=== PATIENT | female | born 1940 | race Caucasian/White ===

== ENCOUNTER 2019-12-16 07:02 | Outpatient (REF) | payer MEDICARE, MEDICAID, SELFPAY ==
[2019-12-16 08:57] LABS: Hemoglobin 14.1 g/dl (12.0-16.0); Mean Corpuscular HGB Conc 32.8 g/dl (31.0-35.0); Mean Corpuscular Hemoglobin 31.3 pg (27.0-33.0); Mean Corpuscular Volume 95.6 fL (80-98); Mean Platelet Volume 11.1 fL (9.4-12.3); Platelet Count 204 X10*3/uL (160-400); Red Cell Distribution Width 12.8 % (11.0-16.0); White Blood Count 5.8 X10*3/uL (4.8-10.8)
[2019-12-16 09:38] LABS: Alanine Aminotransferase 19 U/L (0-31); Albumin Level 4.1 g/dL (3.5-5.0); Alkaline Phosphatase 54 U/L (39-117); Anion Gap 15 (12-20); Aspartate Amino Transferase 26 U/L (5-31); Bilirubin Total 1.1 mg/dL (0.0-1.0); Blood Urea Nitrogen 27 mg/dL (9-16); Calcium 8.8 mg/dL (8.4-10.2); Carbon Dioxide 27 mmol/L (22-29); Chloride 103 mmol/L (96-108); Estimated Glomerular Filt Rate 49; Glucose Fasting 135 mg/dL (60-99); Potassium 4.3 mmol/l (3.3-5.1); Sodium 141 mmol/L (135-145); Total Protein 6.5 g/dL (6.5-8.0)
[2019-12-16 09:48] LABS: Free T4 (Free Thyroxine) 1.53 ng/dL (0.71-1.85); Thyroid Stimulating Hormone 0.84 uIU/mL (0.32-4.0)
== END 2019-12-16 07:03 | disposition home or self-care (01) ==
LOC: HO.LAB 07:02
PROVIDERS: Visit Provider Internal Medicine
DX: E03.9 Hypothyroidism, unspecified (principal); E78.2 Mixed hyperlipidemia; E11.9 Type 2 diabetes mellitus without complications; R60.9 Edema, unspecified
CPT/HCPCS: 36415; 80053; 84439; 84443; 85027

== ENCOUNTER 2020-01-13 11:31 | Outpatient (REF) | payer MEDICARE, MEDICAID, SELFPAY ==
--- NOTE | 2020-01-13 11:37 | XR_ITS ---
EXAMINATION: XR HAND, LEFT CLINICAL INFORMATION: Finger pain COMPARISON: None TECHNIQUE: PA, lateral, and oblique views of the left hand. FINDINGS: There is no evidence of acute fracture or dislocation of the left hand. No significant joint space narrowing is identified. No erosive changes are seen. Vascular calcifications present. There is some mild soft tissue swelling seen about the second and third metacarpophalangeal joints. XR/XR hand LT min 3V IMPRESSION: No significant bony abnormality of the left hand identified.
== END 2020-01-13 11:32 | disposition home or self-care (01) ==
LOC: HO.HMGCX 11:31
PROVIDERS: PCP Internal Medicine; Visit Provider Hospitalist
DX: M79.645 Pain in left finger(s) (principal)
CPT/HCPCS: 73130

== ENCOUNTER 2020-02-11 10:16 | Outpatient (REF) | payer MEDICARE, MEDICAID, SELFPAY | END 2020-02-11 10:17 | disposition home or self-care (01) | LOC: HO.LAB 10:16 | PROVIDERS: PCP Internal Medicine; Visit Provider Internal Medicine | DX: Z20.822 Contact with and (suspected) exposure to COVID-19 (principal) | CPT/HCPCS: 36415; C9803; U0003 ==

== ENCOUNTER 2020-05-13 07:51 | Outpatient (REF) | payer MEDICARE, MEDICAID, SELFPAY ==
[2020-05-13 10:02] LABS: Alanine Aminotransferase 12 U/L (0-31); Albumin Level 4.3 g/dL (3.5-5.0); Alkaline Phosphatase 62 U/L (39-117); Anion Gap 17 (12-20); Aspartate Amino Transferase 18 U/L (5-31); Bilirubin Total 1.6 mg/dL (0.0-1.0); Carbon Dioxide 28 mmol/L (22-29); Chloride 102 mmol/L (96-108); Cholesterol 166 mg/dL; Estimated Glomerular Filt Rate 48; Glucose Fasting 177 mg/dL (60-99); HDL Cholesterol 67 mg/dL; LDL Cholesterol Calculated 77 mg/dl; Potassium 4.6 mmol/L (3.3-5.1); Sodium 142 mmol/L (135-145); Total Protein 6.9 g/dL (6.5-8.0); Triglycerides 112 mg/dL
[2020-05-13 10:03] LABS: Estimated Average Glucose 171 mg/dL; Hemoglobin A1c % 7.6 %
[2020-05-13 10:07] LABS: TSH reflex Free T4 1.41 uIU/mL (0.32-4.0)
[2020-05-13 10:13] LABS: Blood Urea Nitrogen 26 mg/dL (9-16); Calcium 9.5 mg/dL (8.4-10.2)
[2020-05-13 10:36] LABS: Creatinine Urine 74.18 mg/dL
== END 2020-05-13 07:52 | disposition home or self-care (01) ==
LOC: HO.LAB 07:51
PROVIDERS: PCP Internal Medicine; Visit Provider Internal Medicine
DX: E03.9 Hypothyroidism, unspecified (principal); E11.9 Type 2 diabetes mellitus without complications; E78.5 Hyperlipidemia, unspecified; I48.91 Unspecified atrial fibrillation
CPT/HCPCS: 36415; 80053; 80061; 82043; 83036; 84443

== ENCOUNTER 2020-10-26 | Outpatient (REF) | payer MEDICARE, MEDICAID, SELFPAY ==
[2020-10-26 09:55] VITALS: BP 192/81; PULSE 71; RESP 16; TEMP 36.4; O2SAT 98
[2020-10-26 11:11] VITALS: BMI 31.3
== END 2020-10-26 00:01 | disposition home or self-care (01) ==
LOC: HO.MS
PROVIDERS: PCP Internal Medicine; Visit Provider Ophthalmology
PROC: (CPT 66821; principal; 2020-10-26 12:40)
DX: H26.491 Other secondary cataract, right eye (principal); Z96.1 Presence of intraocular lens; E11.9 Type 2 diabetes mellitus without complications; Z79.84 Long term (current) use of oral hypoglycemic drugs; Z79.899 Other long term (current) drug therapy
CPT/HCPCS: 66821

== ENCOUNTER 2020-11-25 07:20 | Outpatient (REF) | payer MEDICARE, MEDICAID, SELFPAY ==
[2020-11-25 07:56] LABS: Basophils Percent Auto 0.5 % (0-2); Eosinophils Absolute Auto 0.2 X10*3/uL (0.0-0.4); Eosinophils Percent Auto 2.9 % (0-4); Hematocrit 40.3 % (37-47); Hemoglobin 13.2 g/dl (12.0-16.0); Imm Gran Abs Auto 0.02 X10*3/uL (0.00-0.03); Imm Gran Pct Auto 0.4 % (0.0-0.4); Lymphocytes Absolute Auto 2.2 X10*3/uL (1.2-4.9); Lymphocytes Percent Auto 39.7 % (20-40); MANUAL DIFF FLAG NO; Mean Corpuscular HGB Conc 32.8 g/dl (31.0-35.0); Mean Corpuscular Hemoglobin 31.2 pg (27.0-33.0); Mean Corpuscular Volume 95.3 fL (80-98); Mean Platelet Volume 10.7 fL (9.4-12.3); Monocytes Absolute Auto 0.5 X10*3/uL (0.1-1.2); Monocytes Percent Auto 8.9 % (2-11); Neutrophils Absolute Auto 2.6 X10*3/uL (2.0-8.3); Neutrophils Percent Auto 47.6 % (45-73); Platelet Count 244 X10*3/uL (160-400); Red Blood Count 4.23 X10*6/uL (4.20-5.50); Red Cell Distribution Width 13.8 % (11.0-16.0); White Blood Count 5.5 X10*3/uL (4.8-10.8)
[2020-11-25 08:34] LABS: Alanine Aminotransferase 10 U/L (0-31); Albumin Level 4.2 g/dL (3.5-5.0); Alkaline Phosphatase 52 U/L (39-117); Anion Gap 17 (12-20); Aspartate Amino Transferase 18 U/L (5-31); Bilirubin Total 1.8 mg/dL (0.0-1.0); Blood Urea Nitrogen 26 mg/dL (9-16); Calcium 9.4 mg/dL (8.4-10.2); Carbon Dioxide 27 mmol/L (22-29); Chloride 104 mmol/L (96-108); Cholesterol 146 mg/dL; Estimated Glomerular Filt Rate 48; Glucose Fasting 163 mg/dL (60-99); HDL Cholesterol 62 mg/dL; LDL Cholesterol Calculated 65 mg/dl; Potassium 4.7 mmol/L (3.3-5.1); Sodium 143 mmol/L (135-145); Total Protein 6.7 g/dL (6.5-8.0); Triglycerides 98 mg/dL
[2020-11-25 08:54] LABS: Free T4 (Free Thyroxine) 1.27 ng/dL (0.71-1.85); Thyroid Stimulating Hormone 1.85 uIU/mL (0.32-4.0)
== END 2020-11-25 07:21 | disposition home or self-care (01) ==
LOC: HO.LAB 07:20
PROVIDERS: PCP Internal Medicine; Visit Provider Internal Medicine
DX: E11.9 Type 2 diabetes mellitus without complications (principal); I48.91 Unspecified atrial fibrillation; E78.5 Hyperlipidemia, unspecified; E03.9 Hypothyroidism, unspecified
CPT/HCPCS: 36415; 80053; 80061; 84439; 84443; 85025

== ENCOUNTER 2021-03-20 12:28 | Emergency (ER) | payer MEDICARE, MEDICAID, SELFPAY ==
--- NOTE | ~2021-03-20 | US_ITS ---
EXAMINATION: US VENOUS ULTRASOUND WITH DOPPLER LOWER EXTREMITY, RIGHT CLINICAL INFORMATION: Calf pain and tenderness. Rule out DVT. COMPARISON: None TECHNIQUE: Ultrasound of the deep veins is performed from the hip to the calf with compression sonography and color and pulse Doppler assessment. Spectral analysis with color-flow imaging is performed. FINDINGS: There is normal venous compression and respiratory variation and augmented flow. The visualized common femoral vein, superficial femoral vein, profunda femoral vein, popliteal vein, and the trifurcation region shows no evidence of deep venous thrombosis. There is no significant popliteal fossa cyst. Examination is technically difficult due to body habitus. If the patient's symptoms persist, followup ultrasound in 5 days 7 days might be of value to exclude proximal propagation from a non-visualized calf vein. US/US venous duplex LE RT IMPRESSION: No DVT demonstrated in the right lower extremity.
--- NOTE | ~2021-03-20 | XR_ITS ---
EXAMINATION: XR KNEE, RIGHT CLINICAL INFORMATION: Atraumatic knee pain COMPARISON: None TECHNIQUE: 5 views of the right knee. FINDINGS: Small joint effusion. Tricompartmental degenerative changes are seen with osteophyte formation and joint space loss. I do not appreciate any acute superimposed fracture or dislocation. No bony destructive lesions. Extensive vascular calcification seen in the soft tissues. XR/XR knee RT 4V IMPRESSION: Tricompartmental degenerative changes but no acute fracture or dislocation.
[2021-03-20 12:37] VITALS: BP 150/73; BP 168/72; PULSE 68; RESP 18; TEMP 36.6; O2SAT 100; O2SAT 99; BMI 32.5
--- NOTE | 2021-03-20 12:41 | ED_ITS ---
HPI - Extremity Injury (Lower) General Chief Complaint: General Medical Stated Complaint: R KNEE PAIN SINCE LAST NIGHT,NO INJURY PER EMS Time Seen by Provider: 03/20/21 12:40 Source: patient Mode of arrival: EMS Limitations: other (uses walker) History of Present Illness HPI Narrative: 81-year-old female with past medical history of atrial fibrillation, diabetes, obesity, hypertension, hyperlipidemia, hypothyroid, presents with right knee pain. The knee pain started last night, and is very painful to move her leg. The pain radiates from her knee down her lower leg. She could not sleep due to the pain last night. No trauma. No numbness or tingling. Patient had similar right knee pain dysuria [place] time, but it cleared up. Related Data Home Medications Medication Instructions Recorded Confirmed blood sugar diagnostic #10 ea 12/25/19 11/27/20 flu vacc (65yr ml IM 12/25/19 11/27/20 up)-MF59C(PF) 60 mcg(15 mcgx4)/0.5 mL IM syringe Previous Rx's Medication Instructions Recorded diclofenac sodium 1 % topical gel 4 g TOPICAL QID #100 g 01/13/20 (Voltaren Arthritis Pain) apixaban 5 mg tablet 5 mg PO BID #180 tab 08/11/20 atorvastatin 10 mg tablet 10 mg PO DAILY #90 tab 08/27/20 blood sugar diagnostic (Accu-Chek 1 strip MISCELLANEOUS DAILY #100 09/08/20 Suzanne Plus test strp) strip furosemide 20 mg tablet 20 mg PO BID #180 tab 09/17/20 levothyroxine 125 mcg tablet 125 mcg PO DAILY #90 tab 09/17/20 metformin 500 mg tablet 1,000 mg PO BID #360 tab 09/17/20 lancets (Accu-Chek Softclix #100 ea 09/23/20 Lancets) metoprolol tartrate 25 mg tablet 25 mg PO BID #180 tab 01/28/21 prednisone 20 mg tablet 60 mg PO DAILY 5 Days #15 tab 03/20/21 Allergies Allergy/AdvReac Type Severity Reaction Status Date / Time FATTY FOOD Allergy Mild DIARRHEA Uncoded 11/27/20 13:55 Review of Systems Constitutional: Constitutional: Denies body ache(s), Denies chills, Denies fatigue, Denies fever(s), Denies headache(s), Denies malaise and Denies weakness Eyes: Eyes: Denies diplopia ENT: Denies vertigo, Denies dizziness, Denies otalgia, Denies headache(s), Denies mouth pain, Denies post nasal drip, Denies sinus pain, Denies sinus pressure, Denies sore throat and Denies throat swelling Cardiovascular: Cardiovascular: Denies chest pain, Denies syncope, Denies leg edema, Denies lightheadedness, Denies Loss of Consciousness, Denies palpitations and Denies dyspnea Respiratory: Respiratory: Denies chest congestion, Denies cough and Denies dyspnea Gastrointestinal: Gastrointestinal: Denies abdominal pain, Denies hematochezia, Denies constipation, Denies diarrhea and Denies vomiting Musculoskeletal: Musculoskeletal: Denies back pain, Reports arthralgias, Reports joint swelling, Denies muscle weakness, Denies numbness, Reports radiating pain into limb and Denies tingling Neurologic: Denies confusion, Denies vertigo, Denies dizziness, Denies syncope, Denies headache(s), Denies numbness, Denies tingling and Denies weakness Psychiatric: Psychiatric: Denies anxiety, Denies confusion and Denies depression Endocrine: Endocrine: Denies fatigue and Denies palpitations Allergic/Immunologic: Allergic/Immunologic: Denies throat swelling PMFSH Past Medical History Medical History Annual physical exam Atrial fibrillation Cellulitis Diabetes Edema Hyperlipidemia Hypertension Hypothyroidism Obesity Surgical History History of appendectomy Family History Family History Father No problems noted. Father Diabetes mellitus Social History Social History Advance Directives: No Advance Directives Information Provided: No Physical Exam Vital Signs: Vital Signs: Last Vital Signs Temp 98.0 F 03/20/21 15:11 Pulse 57 03/20/21 15:11 Resp 18 03/20/21 15:11 BP 127/60 03/20/21 15:11 Pulse Ox 98 03/20/21 15:11 BMI result Body Mass Index 32.5 Const: General: no acute distress, alert and awake; No confusion Nutritional Appearance: obese morbidly obese Orientation/consciousness: patient oriented x3 and No confusion Limitations: no limitations HENMT: Head: Yes normal to inspection, Yes normocephalic and Yes atraumatic Ears: hearing grossly normal bilaterally, external ears normal, TM's normal bilaterally and EAC's normal General nose exam: Normal external nose present Face and sinus: Yes normal facial exam and Yes sinuses nontender Mouth: Normal oral and palatal mucosa present Throat: Yes posterior oropharynx normal Eyes: Conjunctivae: conjunctivae normal Pupils: Equal, round and reactive pupils present EOM: EOMs intact bilaterally Neck: Neck: Yes full ROM, Yes no lymphadenopathy and Yes supple Resp: Effort & Inspection: normal respiratory effort and able to speak in complete sentences Auscultation: clear to auscultation bilaterally, no c rackles, no rales, no rhonchi and no wheezes Cardio: Rate: regular rate Rhythm: regular rhythm Heart sounds: S1 normal heart sound present and S2 normal heart sound present GI: Inspection: Yes normal to inspection Palpation (GI): Soft to palpation, nontender, no guarding and not rigid Percussion: Yes normal to percussion Auscultation: normal bowel sounds Skin: Other: Right knee warmer and more swollen than left General skin exam: no rashes or lesions noted Neuro: General: patient oriented x3 and No confusion Cranial nerves: Yes Equal, round and reactive pupils present Extrem: Right lower extremity: normal capillary refill, lower leg Details: tenderness Location: of the posterior calf and non-pitting edema Details: 2+; Negative for no palpable cords and ankle Details: edema Details: non-pitting and 2+ Left lower extremity: normal capillary refill, lower leg Details: non- pitting edema Details: 2+ and ankle Details: pitting edema Details: non-pitting and 2+ Psych: Appearance: grossly normal Affect: normal affect Attitude: cooperative Thought process: Normal thought process present Course Course Course Narrative: 81-year-old female with acute right knee pain, right knee is mildly warm, swollen, and is tender over entire patella, medial and lateral joint line, right calf tenderness. Patient has bilateral lower extremity edema and bilateral ankle edema that is nonpitting. Patient has healing cellulitis on her left leg. Multiple varicosities. Patient on Eliquis and Lasix. Labs show ESR of 29 and CRP 2.88. On re-examination, patient is feeling better with Tylenol. X-ray shows joint effusion with dry compartmental degenerative changes. Dr Sherman tapped knee, awaiting synovial fluid results. FINDINGS: XR/XR knee RT 4V IMPRESSION: Tricompartmental degenerative changes but no acute fracture or dislocation. Reevaluation(s) Reevaluation #1: Synovial fluid shows WBC 17.7, neutrophils 90. Texted with Ortho JUVENCIO Vergara, who agreed white blood cell count of 17 is most likely too low to be a septic arthritis. Will treat with Jeff wrap, RICE, prednisone, and have pt f/u with othropedics. Looks like inflammatory osteoarthritis with effusion. MDM - Extremity Injury (Lower) Lab Data Result diagrams: 03/20/21 13:17 03/20/21 13:17 Labs: Lab Results 03/20/21 03/20/21 03/20/21 Range/Units 13:17 13:17 13:17 WBC 10.3 (4.8-10.8) X10*3/uL RBC 4.06 L (4.20-5.50) X10*6/uL Hgb 12.3 (12.0-16.0) g/dl Hct 38.1 (37.0-47.0) % MCV 93.8 (80.0-98.0) fL MCH 30.3 (27.0-33.0) pg MCHC 32.3 (31.0-35.0) g/dl RDW 13.8 (11.0-16.0) % Plt Count 224 (160-400) X10*3/uL MPV 10.4 (9.4-12.3) fL Immature Gran % (Auto) 0.3 (0.0-0.4) % Neut % (Auto) 75.0 H (45-73) % Lymph % (Auto) 13.8 L (20-40) % [place] % (Auto) 10.4 (2-11) % Eos % (Auto) 0.4 (0-4) % Baso % (Auto) 0.1 (0-2) % Lymph # (Auto) 1.4 (1.2-4.9) X10*3/uL [place] # (Auto) 1.1 (0.1-1.2) X10*3/uL Eos # (Auto) 0.0 (0.0-0.4) X10*3/uL Baso # (Auto) 0.0 (0.0-0.2) X10*3/uL Abs Immat Gran (auto) 0.03 (0.00-0.03) X10*3/uL Absolute Neuts (auto) 7.8 (2.0-8.3) x10*3/uL Absolute Nucleated RBC 0.000 (0.0-0.012) X10*3/uL Nucleated RBC % (auto) 0.0 (0.0-0.2) /100WBC ESR 29 H (0-20) MM/HR Sodium 139 (135-145) mmol/L Potassium 4.7 (3.3-5.1) mmol/L Chloride 103 (96-108) mmol/L Carbon Dioxide 28 (22-29) mmol/L Anion Gap 13 (12-20) BUN 31 H (9-16) mg/dL Creatinine 1.06 (0.5-1.4) mg/dL Estim Creat Clear Calc 36.2 Estimated GFR 50 Random Glucose 169 H (60-115) mg/dL Uric Acid 10.4 H (2.4-5.7) mg/dL Calcium 9.7 (8.4-10.2) mg/dL Total Bilirubin 2.8 H (0.0-1.0) mg/dL AST 14 (5-31) U/L ALT 10 (0-31) U/L Alkaline Phosphatase 51 (39-117) U/L C-Reactive Protein 2.88 H (< or = 0.50) mg/dL Total Protein 6.6 (6.5-8.0) g/dL Albumin 4.0 (3.5-5.0) g/dL Synovial Source Synovial WBC X10*3/uL Synovial RBC X10*6/uL Synovial Neutrophils % Synovial Monocytes % 03/20/21 Range/Units 15:46 WBC (4.8-10.8) X10*3/uL RBC (4.20-5.50) X10*6/uL Hgb (12.0-16.0) g/dl Hct (37.0-47.0) % MCV (80.0-98.0) fL MCH (27.0-33.0) pg MCHC (31.0-35.0) g/dl RDW (11.0-16.0) % Plt Count (160-400) X10*3/uL MPV (9.4-12.3) fL Immature Gran % (Auto) (0.0-0.4) % Neut % (Auto) (45-73) % Lymph % (Auto) (20-40) % [place] % (Auto) (2-11) % Eos % (Auto) (0-4) % Baso % (Auto) (0-2) % Lymph # (Auto) (1.2-4.9) X10*3/uL [place] # (Auto) (0.1-1.2) X10*3/uL Eos # (Auto) (0.0-0.4) X10*3/uL Baso # (Auto) (0.0-0.2) X10*3/uL Abs Immat Gran (auto) (0.00-0.03) X10*3/uL Absolute Neuts (auto) (2.0-8.3) x10*3/uL Absolute Nucleated RBC (0.0-0.012) X10*3/uL Nucleated RBC % (auto) (0.0-0.2) /100WBC ESR (0-20) MM/HR Sodium (135-145) mmol/L Potassium (3.3-5.1) mmol/L Chloride (96-108) mmol/L Carbon Dioxide (22-29) mmol/L Anion Gap (12-20) BUN (9-16) mg/dL Creatinine (0.5-1.4) mg/dL Estim Creat Clear Calc Estimated GFR Random Glucose (60-115) mg/dL Uric Acid (2.4-5.7) mg/dL Calcium (8.4-10.2) mg/dL Total Bilirubin (0.0-1.0) mg/dL AST (5-31) U/L ALT (0-31) U/L Alkaline Phosphatase (39-117) U/L C-Reactive Protein (< or = 0.50) mg/dL Total Protein (6.5-8.0) g/dL Albumin (3.5-5.0) g/dL Synovial Source right knee Synovial WBC 17.730 X10*3/uL Synovial RBC 0.015 X10*6/uL Synovial Neutrophils 90 % Synovial Monocytes 10 % Discharge Plan Discharge Clinical Impression: Inflammatory osteoarthritis Acute knee pain Qualifiers: Laterality: right Qualified Code(s): M25.561 - Pain in right knee Patient Disposition: Home, Self-Care Instructions: Knee Pain (ED), R.I.C.E. Treatment (ED) Additional Instructions: Please fill prescription for prednisone and start it tomorrow. You are ready got your dose today. Please call Orthopedics at [phone] on Monday for a follow up appointment. Please rest, elevate, and ice your knee. If you have worsening pain or unable to walk, please return to emergency room. Prescriptions: New prednisone 20 mg tablet 60 mg PO DAILY 5 Days Qty: 15 0RF No Action apixaban 5 mg tablet 5 mg PO BID Qty: 180 3RF atorvastatin 10 mg tablet 10 mg PO DAILY Qty: 90 3RF Accu-Chek Suzanne Plus test strp Strip 1 strip miscellaneous DAILY Qty: 100 4RF furosemide 20 mg tablet 20 mg PO BID Qty: 180 3RF levothyroxine 125 mcg tablet 125 mcg PO DAILY Qty: 90 3RF metformin 500 mg tablet 1,000 mg PO BID Qty: 360 3RF (DME) lancets [Accu-Chek Softclix Lancets] Misc See Rx Instructions .Route Qty: 100 2RF Rx Instructions: Use to check blood sugar once daily or as needed for symptoms of hypo/hyperglycemia metoprolol tartrate 25 mg tablet 25 mg PO BID Qty: 180 3RF Fluad Quad 2020-21(65y up)(PF) 60 mcg (15 mcg x 4)/0.5 mL syringe IM 0RF (DME) Accu-Chek Suzanne Plus test strp Strip See Rx Instructions ea Not Applicable DAILY Qty: 10 0RF Rx Instructions: As directed diclofenac sodium [Voltaren Arthritis Pain] 1 % gel 4 g topical QID Qty: 100 0RF Rx Instructions: apply to single knee, ankle, foot; for foot includes sole/toes/top of foot Referrals: Chidi Hagan MD [Physician] - 2 days
--- NOTE | 2021-03-20 12:43 | PC.NURSE ---
pt a&ox3, vss, knee pain around a 5/10 at rest, increasing to 8/10 with weight bearing, 2+ edema, provider in room.
[2021-03-20 12:45] VITALS: BP 150/73; PULSE 67; RESP 18; TEMP 36.6; O2SAT 99
[2021-03-20 13:25] LABS: MANUAL DIFF FLAG NO
[2021-03-20 13:27] LABS: Basophils Percent Auto 0.1 % (0-2); Eosinophils Percent Auto 0.4 % (0-4); Hematocrit 38.1 % (37.0-47.0); Hemoglobin 12.3 g/dl (12.0-16.0); Imm Gran Abs Auto 0.03 X10*3/uL (0.00-0.03); Imm Gran Pct Auto 0.3 % (0.0-0.4); Lymphocytes Absolute Auto 1.4 X10*3/uL (1.2-4.9); Lymphocytes Percent Auto 13.8 % (20-40); Mean Corpuscular HGB Conc 32.3 g/dl (31.0-35.0); Mean Corpuscular Hemoglobin 30.3 pg (27.0-33.0); Mean Corpuscular Volume 93.8 fL (80.0-98.0); Mean Platelet Volume 10.4 fL (9.4-12.3); Monocytes Absolute Auto 1.1 X10*3/uL (0.1-1.2); Monocytes Percent Auto 10.4 % (2-11); Neutrophils Absolute Auto 7.8 x10*3/uL (2.0-8.3); Platelet Count 224 X10*3/uL (160-400); Red Blood Count 4.06 X10*6/uL (4.20-5.50); Red Cell Distribution Width 13.8 % (11.0-16.0); White Blood Count 10.3 X10*3/uL (4.8-10.8)
[2021-03-20 13:37] VITALS: BP 147/58; PULSE 58; RESP 18; O2SAT 94
[2021-03-20] MEDS: Acetaminophen 325 MG TABLET 650 MG PO (13:37)
--- NOTE | 2021-03-20 13:38 | PC.NURSE ---
pt medicated per order, vss, rt knee swelling noted, pt c/o 6/10 pain, will continue to monitor.
[2021-03-20 13:50] LABS: Alanine Aminotransferase 10 U/L (0-31); Alkaline Phosphatase 51 U/L (39-117); Anion Gap 13 (12-20); Aspartate Amino Transferase 14 U/L (5-31); Bilirubin Total 2.8 mg/dL (0.0-1.0); Blood Urea Nitrogen 31 mg/dL (9-16); C Reactive Protein 2.88 mg/dL (< or = 0.50); Calcium 9.7 mg/dL (8.4-10.2); Carbon Dioxide 28 mmol/L (22-29); Chloride 103 mmol/L (96-108); Creatinine Clr Calc Pharmacy 36.2; Estimated Glomerular Filt Rate 50; Glucose Random 169 mg/dL (60-115); Potassium 4.7 mmol/L (3.3-5.1); Sodium 139 mmol/L (135-145); Total Protein 6.6 g/dL (6.5-8.0); Uric Acid 10.4 mg/dL (2.4-5.7)
[2021-03-20 14:06] LABS: Erythrocyte Sedimentation Rate 29 MM/HR (0-20)
--- NOTE | 2021-03-20 14:19 | PC.NURSE ---
us to be performed at bedside
[2021-03-20] MEDS: Lidocaine HCl 1 % MPF 5 ML VIAL SUBCUT (15:10)
[2021-03-20 15:11] VITALS: BP 127/60; PULSE 57; RESP 18; TEMP 36.7; O2SAT 98
--- NOTE | 2021-03-20 15:30 | PC.NURSE ---
this nurse was in the room with provider for right knee joint tap, betadine applied to knee, lidocane injected into joint, aspirated w 18G needle, joint fluid sent to lab, pt tolerated procedure, vss, a&ox3
[2021-03-20 15:51] LABS: Source Synovial Fluid right knee
[2021-03-20 16:00] VITALS: BP 149/59; PULSE 59; RESP 18; O2SAT 99
[2021-03-20 16:42] LABS: MN% 13.7 %; PMN% 86.3 %
[2021-03-20 16:43] LABS: RBC Synovial Fluid 0.015 X10*6/uL
[2021-03-20 16:46] LABS: BF Shift QC OK YES; Monocytes Synovial Fluid 10 %; Neutrophils Synovial Fluid 90 %
[2021-03-20 16:47] LABS: Man Diluent Bkgrd OK YES
[2021-03-20 18:00] VITALS: BP 178/68; PULSE 61; RESP 18; TEMP 36.7; O2SAT 99
[2021-03-20] MEDS: predniSONE 20 MG TABLET 60 MG PO (18:04)
--- NOTE | 2021-03-20 18:06 | PC.NURSE ---
patient medicated per order, vss
[2021-03-22 13:56] LABS: Lyme Abs Screen <0.90 index
== END 2021-03-20 18:23 | disposition home or self-care (01) ==
PROVIDERS: Physician Assistant; Emergency Provider Emergency Medicine Emergency Medical Services; PCP Internal Medicine
DX: M17.11 Unilateral primary osteoarthritis, right knee (principal); M25.461 Effusion, right knee; M25.561 Pain in right knee; R60.0 Localized edema; I48.91 Unspecified atrial fibrillation; E11.9 Type 2 diabetes mellitus without complications; I10 Essential (primary) hypertension; E78.5 Hyperlipidemia, unspecified; Z79.02 Long term (current) use of antithrombotics/antiplatelets; Z79.01 Long term (current) use of anticoagulants
CPT/HCPCS: 20610; 36415; 73564; 80053; 84550; 85025; 85652; 86140; 86617; 86618; 87071; 87073; 87205; 89051; 89060; 93971; 99284; 99285

== ENCOUNTER 2021-03-25 07:34 | Outpatient (REF) | payer MEDICARE, MEDICAID, SELFPAY ==
--- NOTE | ~2021-03-25 | XR_ITS ---
EXAMINATION: RIGHT KNEE. CLINICAL INFORMATION: Pain in right knee. COMPARISON: None TECHNIQUE: Patellofemoral one view. FINDINGS: There is loss of patellofemoral compartment joint space with mild periarticular spurring. No visible acute fracture, dislocation or lytic process seen. The soft tissues are normal. XR/XR knee RT 1V IMPRESSION: Mild degenerative changes patellofemoral compartment with lateral patellar spurring.
== END 2021-03-25 07:35 | disposition home or self-care (01) ==
LOC: HO.HOSX 07:34
PROVIDERS: Visit Provider Physician Assistant
DX: M17.11 Unilateral primary osteoarthritis, right knee (principal)
CPT/HCPCS: 73560; 99202

== ENCOUNTER 2021-04-09 05:54 | Emergency (ER) | payer MEDICARE, MEDICAID, SELFPAY ==
[2021-04-09 06:03] VITALS: BP 125/63; PULSE 69; RESP 16; TEMP 36.7; O2SAT 100; BMI 31.3
--- NOTE | 2021-04-09 06:12 | PC.NURSE ---
at bedside for primary eval.
--- NOTE | 2021-04-09 06:27 | PC.NURSE ---
MD at bedside, pressure dressing with Coban and Bacitracin applied to toe. Plan for DC home.
--- NOTE | 2021-04-09 06:39 | ED_ITS ---
HPI - Extremity Problem General Chief complaint: Extremity Problem Stated complaint: bloody toe Time Seen by Provider: 04/09/21 06:39 Source: patient Mode of arrival: EMS History of Present Illness HPI Narrative: This is an 81-year-old female who is brought in by EMS from [facility]. Patient states that she recently had an ingrown toenail removed from the left great toe (Monday). Patient states that since that time she has had some difficulty controlling the bleeding and that she is on Eliquis currently. Patient states that she woke up this morning, the dressing was saturated with blood and despite her best efforts the toe continued to bleed which prompted her to call EMS. Related Data Home Medications Medication Instructions Recorded Confirmed blood sugar diagnostic #10 ea 12/25/19 11/27/20 flu vacc (65yr ml IM 12/25/19 11/27/20 up)-MF59C(PF) 60 mcg(15 mcgx4)/0.5 mL IM syringe Previous Rx's Medication Instructions Recorded diclofenac sodium 1 % topical gel 4 g TOPICAL QID #100 g 01/13/20 (Voltaren Arthritis Pain) apixaban 5 mg tablet 5 mg PO BID #180 tab 08/11/20 atorvastatin 10 mg tablet 10 mg PO DAILY #90 tab 08/27/20 blood sugar diagnostic (Accu-Chek 1 strip MISCELLANEOUS DAILY #100 09/08/20 Suzanne Plus test strp) strip furosemide 20 mg tablet 20 mg PO BID #180 tab 09/17/20 levothyroxine 125 mcg tablet 125 mcg PO DAILY #90 tab 09/17/20 metformin 500 mg tablet 1,000 mg PO BID #360 tab 09/17/20 lancets (Accu-Chek Softclix #100 ea 09/23/20 Lancets) metoprolol tartrate 25 mg tablet 25 mg PO BID #180 tab 01/28/21 prednisone 20 mg tablet 60 mg PO DAILY 5 Days #15 tab 03/20/21 Allergies Allergy/AdvReac Type Severity Reaction Status Date / Time FATTY FOOD Allergy Mild DIARRHEA Uncoded 04/09/21 06:07 Review of Systems Review of Systems: Pertinent positives and negatives as stated in HPI 10 point review of systems otherwise negative. PMFSH Past Medical History Source: nursing notes reviewed Medical History Annual physical exam Atrial fibrillation Cellulitis Diabetes Edema Hyperlipidemia Hypertension Hypothyroidism Obesity Surgical History History of appendectomy Family History Family History Father No problems noted. Father Diabetes mellitus Social History Social History Advance Directives: No Advance Directives Information Provided: Yes Physical Exam Vital Signs: Vital Signs: Last Vital Signs Temp 98.1 F 04/09/21 06:03 Pulse 69 04/09/21 06:03 Resp 16 04/09/21 06:03 BP 125/63 04/09/21 06:03 Pulse Ox 100 04/09/21 06:03 BMI result Body Mass Index 31.3 VITAL SIGNS: Reviewed. GENERAL: Well developed, well nourished, in no acute distress. HEAD: Normocephalic/atraumatic EYES: PERRLA, EOMI EARS: Ext canals without abnormality OROPHARYNX: no oral lesions noted, posterior pharynx clear LUNGS: Normal breath sounds. No adventitious sounds or accessory muscle use. SpO2<100> CARDIOVASCULAR: IRR/IRR without noted murmurs, no JVD or lower extremity edema. ABDOMEN: Soft, non-tender, non-distended with bowel sounds. MUSCULOSKELETAL: No tenderness, deformities, or effusions noted on gross inspection. EXTREMITIES: No cyanosis, clubbing or edema; left great toenail bed is hemostatic, reapplied a dressing with bacitracin/fold over 2 x 2s and then used Coban to hold pressure SKIN: Inspection of the skin reveals no rashes NEUROLOGIC: Alert and oriented x 4. Strength and sensation to light touch were grossly intact x 4. Course Course Course Narrative: 81-year-old female with history and clinical presentation consistent with bleeding likely secondary to being on Eliquis and then attempting to stop the bleeding by application of warm compresses. Toe is currently hemostatic, dressing is secure, and antibiotic ointment has been applied. Patient was instructed to keep the dressing in place until evaluated by her fire production operator and to keep the extremity elevated when possible. Discharge Plan Discharge Clinical Impression: Bleeding, Toenail torn away Patient Disposition: er SNF Instructions: Nail Removal (ED) Additional Instructions: 1. Resume all home medications. 2. Call your fire production operator today to schedule a re-evaluation of your toe. 3. Recommend that you do not remove the dressing until re-evaluated by your fire production operator, but if this is longer than 3 days please ask the staff for assistance in changing the dressing. Keep your extremity elevated when possible. Return to the ER for worsening symptoms. Prescriptions: No Action apixaban 5 mg tablet 5 mg PO BID Qty: 180 3RF atorvastatin 10 mg tablet 10 mg PO DAILY Qty: 90 3RF Accu-Chek Suzanne Plus test strp Strip 1 strip miscellaneous DAILY Qty: 100 4RF furosemide 20 mg tablet 20 mg PO BID Qty: 180 3RF levothyroxine 125 mcg tablet 125 mcg PO DAILY Qty: 90 3RF metformin 500 mg tablet 1,000 mg PO BID Qty: 360 3RF (DME) lancets [Accu-Chek Softclix Lancets] Misc See Rx Instructions .Route Qty: 100 2RF Rx Instructions: Use to check blood sugar once daily or as needed for symptoms of hypo/hyperglycemia metoprolol tartrate 25 mg tablet 25 mg PO BID Qty: 180 3RF prednisone 20 mg tablet 60 mg PO DAILY 5 Days Qty: 15 0RF Fluad Quad 2020-(65y up)(PF) 60 mcg (15 mcg x 4)/0.5 mL syringe IM 0RF (DME) Accu-Chek Suzanne Plus test strp Strip See Rx Instructions ea Not Applicable DAILY Qty: 10 0RF Rx Instructions: As directed diclofenac sodium [Voltaren Arthritis Pain] 1 % gel 4 g topical QID Qty: 100 0RF Rx Instructions: apply to single knee, ankle, foot; for foot includes sole/toes/top of foot
[2021-04-09] MEDS: Acetaminophen 325 MG TABLET 650 MG PO (07:42)
--- NOTE | 2021-04-09 07:44 | PC.NURSE ---
left great toe remains elevated and wrapped with coban. Pt states pain is returning and medicated for such. repositioned in bed. states her brief is dry. awaits transport back to [facility].
== END 2021-04-09 08:15 | disposition skilled nursing facility (03) ==
PROVIDERS: Emergency Provider Student in an Organized Health Care Education/Training Program
DX: M79.675 Pain in left toe(s) (principal); Z79.01 Long term (current) use of anticoagulants; Z79.899 Other long term (current) drug therapy
CPT/HCPCS: 99283

== ENCOUNTER 2021-04-09 18:07 | Emergency (ER) | payer MEDICARE, MEDICAID, SELFPAY ==
[2021-04-09 18:49] VITALS: BP 114/54; PULSE 61; RESP 18; TEMP 36.4; O2SAT 97
--- NOTE | 2021-04-09 19:54 | ED_ITS ---
HPI - Extremity Problem General Chief complaint: Extremity Injury, Lower Stated complaint: foot pain Time Seen by Provider: 04/09/21 19:54 Source: patient Limitations: no limitations History of Present Illness HPI Narrative: 81-year-old female past medical history significant for hyperlipidemia, diabetes, atrial fibrillation presenting to the emergency department discomfort to her left great toe. Patient tells me she was seen here, today she had an ingrown toenail removed monday and she had uncontrolled bleeding when she came in today they cauterized the area. Controlled bleeding. She tells me that the reason she is in now she is having pain to the great toe. She tells me that the bandage that they put on feels very uncomfortable. She tells me it on too tight but she did want to take it off at home by herself. Bleeding is under control. Patient reports pain however this 2nd I took the bandage off patient reports improvement. Will apply and other dressing onto the site. Patient currently on elkiquis Complaint: joint paint (Let great toe pain ) Onset (ago): day(s) (1) Pain Consistency: constant Location: left Quality: burning, stabbing and constant Radiation: none Relieving factors: nothing Exacerbating factors: other (dressing on toe ) Associated symptoms: denies other symptoms Related Data Home Medications Medication Instructions Recorded Confirmed blood sugar diagnostic #10 ea 12/25/19 11/27/20 flu vacc (65yr ml IM 12/25/19 11/27/20 up)-MF59C(PF) 60 mcg(15 mcgx4)/0.5 mL IM syringe Previous Rx's Medication Instructions Recorded diclofenac sodium 1 % topical gel 4 g TOPICAL QID #100 g 01/13/20 (Voltaren Arthritis Pain) apixaban 5 mg tablet 5 mg PO BID #180 tab 08/11/20 atorvastatin 10 mg tablet 10 mg PO DAILY #90 tab 08/27/20 blood sugar diagnostic (Accu-Chek 1 strip MISCELLANEOUS DAILY #100 09/08/20 Suzanne Plus test strp) strip furosemide 20 mg tablet 20 mg PO BID #180 tab 09/17/20 levothyroxine 125 mcg tablet 125 mcg PO DAILY #90 tab 09/17/20 metformin 500 mg tablet 1,000 mg PO BID #360 tab 09/17/20 lancets (Accu-Chek Softclix #100 ea 09/23/20 Lancets) metoprolol tartrate 25 mg tablet 25 mg PO BID #180 tab 01/28/21 prednisone 20 mg tablet 60 mg PO DAILY 5 Days #15 tab 03/20/21 Allergies Allergy/AdvReac Type Severity Reaction Status Date / Time FATTY FOOD Allergy Mild DIARRHEA Uncoded 04/09/21 06:07 Review of Systems Review of Systems: Constitutional : No Weight loss, No Fever, No Chills, No Fatigue, No Malaise ENT/Mouth : No sore throat, No Rhinorrhea Eyes: No Eye Pain, No Swelling, No Redness Cardiovascular : No Chest Pain, No SOB, No Dyspnea on Exertion, No Orthopnea, No Edema, No Palpitations Respiratory : No Cough, No Sputum, No Wheezing Gastrointestinal : No Nausea, No Vomiting, No Diarrhea, No Constipation, No abdominal Pain, No Hematochezia, No Melena Genitourinary : No Dysuria, No Urinary Frequency, No Hematuria, Musculoskeletal : + joint pain, No Myalgias, No Joint Swelling Skin : No Skin Lesions, No rash Neuro : No Weakness, No Numbness, No Dizziness, No Headache Psych : No Anxiety/Panic, No Depression All other systems reviewed and are negative Yes all other systems are reviewed and are negative [facility] Past Medical History Attestation statement: The following information was validated with the patient. Source: old records reviewed and nursing notes reviewed Medical History Annual physical exam Atrial fibrillation Cellulitis Diabetes Edema Hyperlipidemia Hypertension Hypothyroidism Obesity Surgical History History of appendectomy Family History Family History Father No problems noted. Father Diabetes mellitus Social History Social History Advance Directives: No Physical Exam 2 Vital Signs: Vital Signs: Last Vital Signs Temp 97.5 F 04/09/21 20:32 Pulse 61 04/09/21 20:32 Resp 18 04/09/21 20:32 BP 114/54 L 04/09/21 20:32 Pulse Ox 97 03/04/22 20:32 BMI result Body Mass Index 31.3 VSS Appearance: Alert.? Oriented X3.? No acute distress.? Head: Normocephalic, atraumatic, no step-offs or deformities Eyes: Pupils equal, round and reactive to light.? ENT: Pharynx normal.? Neck: Normal inspection.? Neck supple.? CVS: Normal heart rate and rhythm.? Pulses normal.? Respiratory: No respiratory distress.? Breath sounds normal.? Abdomen: Soft and nontender.? Skin: Skin warm and dry.? Normal skin color.? Normal skin turgor.? Extremities: No lower extremity edema.? No calf ttp. 5/5 strength to bilateral upper and lower extremities. + pain to left great toe over nail bed, not bleeding. Sensation intact to all toes b/l Left great toenail bed is hemostatic, reapplied a dressing with bacitracin/fold over 2 x 2s and then used Coban to hold pressure Back: No midline tenderness, no C-spine tenderness, full range of motion, no CVA tenderness bilaterally Neuro: Oriented X 3.? No motor deficit.? No sensory deficit. CN 2-12 intact Course Reevaluation(s) Reevaluation #1: Area was rewrapped. Patient tells me that it feels much better now. She is feeling better she will be discharged home and will be advised to follow-up with Podiatry. Comfortable discharge Time: 21:24 MDM - Extremity (Nontraumatic) MDM Narrative Medical decision making narrative: 1957 81 yo female presents with discomfort of left great toe status post having a tight dressing applied to it. Patient tells me that she an ingrown toenail removed on Monday, she was seen here today because her toenail was bleeding and had to get cauterized. She tells me that it just hurts and feels like pins and needles. She did want to take the dressing off herself. Physical examination with left great toenail bed hemostatic, reapplied a dressing with bacitracin/fold over 2 x 2s and then used Coban to hold pressure Plan at this time is to reapply Coban. Very low suspicion for compartment syndrome. Bleeding well controlled. Hemodynamically stable. Patient reports improvement when dressing was removed likely was the dressing that was causing the discomfort to the left great toe. I reapplied a dressing however not as tight. Patient will be discharged. Medical Records Attestation: I reviewed the patient's medical records. Lab Data Attestation: I reviewed the patient's lab results. Critical Care Time Critical Care Time Critical Care Time: No Discharge Plan Discharge Clinical Impression: Toe pain, left Patient Disposition: Home, Self-Care Additional Instructions: Take your medications as prescribed. If you were prescribed antibiotics today, it is important that you take your medication to their entirety, do not skip any doses, do not finish them early. Follow-up with your primary care provider this week. Call your equipment installation professional as soon as possible to schedule an appointment. Return to the emergency department with new or worsening symptoms. In case of emergency call 911 Please keep the dressing on until you are seen by Podiatry. If for some reason you cannot see them within the next 3 days, please have staff from your facility remove dressing as this can be a cause for infection of left on for too long. When possible elevate the extremity. If area begins to bleed, please return to the emergency department. Prescriptions: No Action apixaban 5 mg tablet 5 mg PO BID Qty: 180 3RF atorvastatin 10 mg tablet 10 mg PO DAILY Qty: 90 3RF Accu-Chek Suzanne Plus test strp Strip 1 strip miscellaneous DAILY Qty: 100 4RF furosemide 20 mg tablet 20 mg PO BID Qty: 180 3RF levothyroxine 125 mcg tablet 125 mcg PO DAILY Qty: 90 3RF metformin 500 mg tablet 1,000 mg PO BID Qty: 360 3RF (DME) lancets [Accu-Chek Softclix Lancets] Misc See Rx Instructions .Route Qty: 100 2RF Rx Instructions: Use to check blood sugar once daily or as needed for symptoms of hypo/hyperglycemia metoprolol tartrate 25 mg tablet 25 mg PO BID Qty: 180 3RF prednisone 20 mg tablet 60 mg PO DAILY 5 Days Qty: 15 0RF Fluad Quad 2019-(65y up)(PF) 60 mcg (15 mcg x 4)/0.5 mL syringe IM 0RF (DME) Accu-Chek Suzanne Plus test strp Strip See Rx Instructions ea Not Applicable DAILY Qty: 10 0RF Rx Instructions: As directed diclofenac sodium [Voltaren Arthritis Pain] 1 % gel 4 g topical QID Qty: 100 0RF Rx Instructions: apply to single knee, ankle, foot; for foot includes sole/toes/top of foot Referrals: Marlyn Patiño MD [Primary Care Provider] - 2 days Interventions: ED Discharge Assessment Last Done: 04/09/21 21:16 Discharge Date/Time: 04/09/21 21:17
[2021-04-09 20:32] VITALS: BP 114/54; PULSE 61; RESP 18; TEMP 36.4; O2SAT 97; BMI 31.3
--- NOTE | 2021-04-09 20:34 | PC.NURSE ---
pt a&o, no sob or chest pain. Bleeding in left toe controlled. Placed a clean and dry dressing to foot. Positive cms and pedal pulses.
== END 2021-04-09 21:17 | disposition home or self-care (01) ==
PROVIDERS: Emergency Provider Emergency Medicine Emergency Medical Services; PCP Internal Medicine
DX: M79.672 Pain in left foot (principal); Z79.899 Other long term (current) drug therapy
CPT/HCPCS: 99283

== ENCOUNTER 2021-05-28 08:22 | Outpatient (REF) | payer MEDICARE, MEDICAID, SELFPAY ==
[2021-05-28 09:14] LABS: Hematocrit 40.3 % (37.0-47.0); Hemoglobin 12.6 g/dl (12.0-16.0); Mean Corpuscular HGB Conc 31.3 g/dl (31.0-35.0); Mean Corpuscular Hemoglobin 29.4 pg (27.0-33.0); Mean Corpuscular Volume 94.2 fL (80.0-98.0); Mean Platelet Volume 10.4 fL (9.4-12.3); Platelet Count 281 X10*3/uL (160-400); Red Blood Count 4.28 X10*6/uL (4.20-5.50); Red Cell Distribution Width 13.7 % (11.0-16.0); White Blood Count 6.3 X10*3/uL (4.8-10.8)
[2021-05-28 09:41] LABS: Alanine Aminotransferase 10 U/L (0-31); Alkaline Phosphatase 48 U/L (39-117); Anion Gap 13 (12-20); Aspartate Amino Transferase 18 U/L (5-31); Bilirubin Total 1.6 mg/dL (0.0-1.0); Blood Urea Nitrogen 20 mg/dL (9-16); Calcium 9.6 mg/dL (8.4-10.2); Carbon Dioxide 28 mmol/L (22-29); Chloride 104 mmol/L (96-108); Cholesterol 137 mg/dL; Estimated Glomerular Filt Rate 53; Glucose Fasting 163 mg/dL (60-99); HDL Cholesterol 59 mg/dL; LDL Cholesterol Calculated 59 mg/dl; Potassium 4.2 mmol/L (3.3-5.1); Sodium 141 mmol/L (135-145); Total Protein 6.6 g/dL (6.5-8.0); Triglycerides 96 mg/dL
[2021-05-28 10:06] LABS: TSH reflex Free T4 1.65 uIU/mL (0.32-4.0)
[2021-05-28 10:11] LABS: Estimated Average Glucose 174 mg/dL; Hemoglobin A1c % 7.7 %
== END 2021-05-28 08:23 | disposition home or self-care (01) ==
LOC: HO.LAB 08:22
PROVIDERS: PCP Internal Medicine; Visit Provider Internal Medicine
DX: E03.9 Hypothyroidism, unspecified (principal); E11.9 Type 2 diabetes mellitus without complications; E78.5 Hyperlipidemia, unspecified; I48.91 Unspecified atrial fibrillation
CPT/HCPCS: 36415; 80053; 80061; 83036; 84443; 85027

== ENCOUNTER 2021-05-31 12:00 | Outpatient (REF) | payer MEDICARE, MEDICAID, SELFPAY ==
[2021-05-31 13:16] LABS: Microalbumin 24 Hour Urine < 5.0 mg/L
[2021-05-31 13:38] LABS: Total Volume 24 Hour Urine 675 mL
== END 2021-05-31 12:01 | disposition home or self-care (01) ==
LOC: HO.LNP 12:00
PROVIDERS: Visit Provider Internal Medicine
DX: E11.9 Type 2 diabetes mellitus without complications (principal); E03.9 Hypothyroidism, unspecified; E78.5 Hyperlipidemia, unspecified; I48.91 Unspecified atrial fibrillation
CPT/HCPCS: 82043